=== PATIENT | female | born 1955 | race Caucasian/White ===

== ENCOUNTER 2025-02-06 12:05 | Emergency (ER) | payer OTHER, SELFPAY ==
[2025-02-06] VITALS (7 sets, daily range): BP systolic 101–138; BP diastolic 62–88; BMI 18.9
[2025-02-06 12:42] LABS: Hematocrit 39.8 % (37.0-47.0); Hemoglobin 13.5 g/dL (12.0-16.0); Mean Corp Hgb Conc. 33.9 g/dL (33.0-37.0); Mean Corpuscular Volume 89.8 fL (81.0-99.0); Nucleated Red Blood Cells % 0 %; Platelet Count 339 10^3/uL (130-400); Red Cell Dist. Width 12.0 % (11.5-14.5)
[2025-02-06 13:12] LABS: ALT (SGPT) 15 U/L (0-35); AST (SGOT) 18 U/L (14-36); Albumin 4.1 g/dl (3.5-5.0); Alkaline Phosphatase 85 U/L (38-126); Blood Urea Nitrogen 13 mg/dl (7-17); Calcium 9.4 mg/dl (8.4-10.2); Carbon Dioxide 27 mmol/L (22-30); Chloride 106 mmol/L (98-107); Estimated Creatinine Clearance 63 ml/min; Glucose 111 mg/dl (70-99); Potassium 3.5 mmol/L (3.5-5.1); Sodium 139 mmol/L (135-145); Total Protein 6.8 g/dl (6.3-8.2); eGFR > 60.00
--- NOTE | 2025-02-06 14:12 | ED.GENMED ---
History of Present Illness
<Sheri Archibald SALES REPRESENTATIVE [employer] - Last Filed: 02/07/25 08:20>
General
Chief Complaint: Abdominal Symptoms
Source: patient
Exam Limitations: none
Time Seen by Provider: 02/06/25 12:16
Nursing documentation reviewed up to this point in time: agreed with
History of Present Illness
History of Present Illness:
69-year-old female with a history of chronic obstructive pulmonary disease (COPD), hypothyroidism, who presents with abdominal pain and diarrhea that began on 4 days ago. The patient reports frequent episodes of diarrhea but denies fever or chills.
She mentions noticing blood during some episodes of diarrhea, mainly with wiping, which she attributes to hemorrhoids. The abdominal pain is mainly on the 'right side,' with no mention of chest pain or respiratory difficulties beyond COPD. No
recent travel or contact with sick individuals. She has been compliant with taking levothyroxine and uses inhalers for COPD. Denies f/c. Denies recent antibiotic use. Denies UTI symptoms.
Past History
<Sheri Archibald, SALES REPRESENTATIVE [employer] - Last Filed: 02/07/25 08:20>
Past History
ED Past Medical History: COPD and Hypothyroidism
ED Past Surgical History: Gynecological and Tonsilectomy
Social History
Tobacco: Smoker
Alcohol: None
Personal: Single
Living: with family (lives with daughter)
Employment: Retired
Review of Systems
<Sheri Archibald, SALES REPRESENTATIVE [employer] - Last Filed: 02/07/25 08:20>
Review of Systems
Allergies reviewed?: Yes
All Other Systems: ROS reviewed and negative except as documented in HPI and ROS
Constitutional: Denies fever or chills
Respiratory: Denies trouble breathing
Cardiac: Denies chest pain
ABD/GI: Reports abdominal pain and diarrhea (with blood at times with wiping); Denies nausea, vomiting or anorexia
: Reports no symptoms
Skin: Reports no symptoms
Neurological: Reports no symptoms
Phy Exam
<Sheri Archibald, SALES REPRESENTATIVE [employer] - Last Filed: 02/07/25 08:20>
Physical Exam
Physical Exam:
GENERAL: No acute distress. A&Ox3.
CONSTITUTIONAL: Afebrile.
EYES: clear, conjunctivae normal
ENMT: moist mucus membranes
RESPIRATORY: Regular respirations, nonlabored, lungs clear.
CARDIOVASCULAR: Regular rate and rhythm, no murmurs, no rubs.
GI: Soft, generally tender to palpation, nondistended, normal BS
MUSCULOSKELETAL: Moves with ease. Well perfused. No edema
SKIN: Warm, dry, pink
PSYCH: Normal mood and affect. Well kept, interactive and appropriate
NEUROLOGIC: Awake, alert and oriented. No focal neurological deficits
Course
<Sheri Archibald, SALES REPRESENTATIVE [employer] - Last Filed: 02/07/25 08:20>
Orders/Labs/Results
Orders:
Orders
02/06/25 12:33
Complete Blood Count/With Diff Urgent
Comprehensive Metabolic Panel Urgent
STOOL [C difficile Antigen & Toxins] Urgent
[facility] Source: Feces/Stool
Specimen Description:
Date Specimen was Collected: 02/06/25
Time Specimen was Collected: 12:31
Stool Culture Urgent
[facility] Source: Feces/Stool
Specimen Description:
Date Specimen was Collected: 02/06/25
Time Specimen was Collected: 12:31
02/06/25 14:11
CT Abd/pel W Iv And Oral Contr Urgent
Comment:
Reason For Exam: abdominal pain, diarrhea, intermittent blood
Iohexol [Omnipaque] See Protocol PO NOW STA
02/06/25 17:45
Amoxicillin 875 mg/Clav 125 mg [Augmentin 875 mg/125 mg] 1 tablet PO NOW STA
Abnormal Lab Results
02/06/25
12:33
Absolute Monos (auto) 0.7 H 10^3/uL
(0.1-0.6)
Monocytes % 10.3 H %
(1.7-9.3)
Creatinine 0.5 L mg/dL
(0.6-1.0)
Glucose 111 H mg/dl
(70-99)
02/06/25 12:33
02/06/25 12:33
Vital Signs
Initial and Last Documented VS:
Initial Vital Signs
Temp Pulse Resp BP Pulse Ox
97.9 F 84 16 134/68 99
02/06/25 12:06 02/06/25 12:06 02/06/25 12:06 02/06/25 12:06 02/06/25 12:06
Last Documented Vital Signs
Temp Pulse Resp BP Pulse Ox
97.9 F 84 16 129/62 94
02/06/25 12:06 02/06/25 12:06 02/06/25 12:06 02/06/25 17:17 02/06/25 17:45
<Meggan Giles NP - Last Filed: 02/06/25 17:52>
Orders/Labs/Results
Orders:
Orders
02/06/25 12:33
Complete Blood Count/With Diff Urgent
Comprehensive Metabolic Panel Urgent
STOOL [C difficile Antigen & Toxins] Urgent
[facility] Source: Feces/Stool
Specimen Description:
Date Specimen was Collected: 02/06/25
Time Specimen was Collected: 12:31
Stool Culture Urgent
[facility] Source: Feces/Stool
Specimen Description:
Date Specimen was Collected: 02/06/25
Time Specimen was Collected: 12:31
02/06/25 14:11
CT Abd/pel W Iv And Oral Contr Urgent
Comment:
Reason For Exam: abdominal pain, diarrhea, intermittent blood
Iohexol [Omnipaque] See Protocol PO NOW STA
02/06/25 17:45
Amoxicillin 875 mg/Clav 125 mg [Augmentin 875 mg/125 mg] 1 tablet PO NOW STA
Abnormal Lab Results
02/06/25
12:33
Absolute Monos (auto) 0.7 H 10^3/uL
(0.1-0.6)
Monocytes % 10.3 H %
(1.7-9.3)
Creatinine 0.5 L mg/dL
(0.6-1.0)
Glucose 111 H mg/dl
(70-99)
02/06/25 12:33
02/06/25 12:33
Vital Signs
Initial and Last Documented VS:
Initial Vital Signs
Temp Pulse Resp BP Pulse Ox
97.9 F 84 16 134/68 99
02/06/25 12:06 02/06/25 12:06 02/06/25 12:06 02/06/25 12:06 02/06/25 12:06
Last Documented Vital Signs
Temp Pulse Resp BP Pulse Ox
97.9 F 84 16 129/62 94
02/06/25 12:06 02/06/25 12:06 02/06/25 12:06 02/06/25 17:17 02/06/25 17:45
<Sheri Archibald, SALES REPRESENTATIVE [employer] - Last Filed: 02/07/25 08:20>
MDM/Problems Addressed
Differential Diagnosis Includes:
Diverticulitis, colitis, hemorrhoids, infectious diarrhea
MDM/Problems Addressed:
69-year-old female with a history of chronic obstructive pulmonary disease (COPD), hypothyroidism, who presents with abdominal pain and diarrhea that began on 4 days ago. The patient reports frequent episodes of diarrhea but denies fever or chills.
She mentions noticing blood during some episodes of diarrhea, mainly with wiping, which she attributes to hemorrhoids. The abdominal pain is mainly on the 'right side,' with no mention of chest pain or respiratory difficulties beyond COPD. No
recent travel or contact with sick individuals. She has been compliant with taking levothyroxine and uses inhalers for COPD. Denies f/c. Denies recent antibiotic use. Denies UTI symptoms.
Afebrile, NAD
CBC, CMP normal (no sign of infection, dehydration with normal liver and kidney functions).
C diff neg
3:45 p.m.
Pt prepping for CT scan. Case discussed with Meggan Tsai NP who will assume care from this point
<Sheri Archibald NP - Last Filed: 02/07/25 08:20>
*Pulse Oximetry
SaO2: 96
Oxygen Mode of Delivery: Room air
<Meggan Giles NP - Last Filed: 02/06/25 17:52>
*Pulse Oximetry
Patient hypoxic: no
*Critical Care Note
Total Time (30-74mins, 75-104mins- exclusive of procedures): Not Applicable
<Meggan Giles NP - Last Filed: 02/06/25 17:52>
Update Note
Update Note:
CT report reviewed;' findings suspicious for acute sigmoid diverticulitis, no perforation or abscess. There was also mild wall thickening throughout the descending colon which raises the possibility of superimposed nonspecific colitis.' Discussed
CT findings with patient. Will start Augmentin in the ED. She will be discharged home on clear liquids, to advance as tolerated. She was given instructions on signs and symptoms to return to the emergency department and she is agreeable to this
plan. Given also the number for GI follow-up.
ED Attending Note
<Sheri Archibald NP - Last Filed: 02/07/25 08:20>
-
Portions of this chart may have been created with voice recognition software.� Occasional wrong word or��sound alike� substitutions may have occurred due to the inherent limitations of voice recognition software.
Discharge Plan
Departure
Patient Disposition: Home (Routine Discharge)
Date of Disposition: 02/06/25
Time of Disposition: 17:46
Patient with high blood pressure during this ER visit?: No
Condition: Good
Covid-19: Not Applicable
Discharge Problem:
Diverticulitis
Instructions: Clear Liquid Diet, Diverticulitis (DC)
Prescriptions:
New
amoxicillin-pot clavulanate 875-125 mg tablet
1 tab PO BID Qty: 20 0RF
No Action
amoxicillin-pot clavulanate 875-125 mg tablet
1 tab PO BID Qty: 20 0RF
Referrals:
Tanya Byrnes MD [Active, Gastroenterology] - Next open appointment
Glenn Alfonso DO [Family Provider, Family Practice] - Follow up in 2-3 days
Activity Restrictions/Additional Instructions:
Return to the emergency department immediately for any changes in/worsening of your symptoms.
Interventions
Interventions:
*Risk Screen - Suicide Last Done: 02/06/25 12:06
*General Assessment Last Done: 02/06/25 12:35
*Neglect/Abuse Screening Last Done: 02/06/25 12:06
*ED- Fall Risk Assessment Last Done: 02/06/25 12:35
*ED COVID-19 Vaccine History Last Done: 02/06/25 12:35
*ED Influenza Vaccine History Last Done: 02/06/25 12:35
*Nursing Disposition Last Done: 02/06/25 18:05
MW-Xhyrnl-Bnmfimatzz Assessment Last Done: 02/06/25 12:36
Discharge Date and Time
Discharge Date/Time: 02/06/25 18:05
Print Language: LAO
[2025-02-06] MEDS: OMNIPAQUE 50 ML PO (14:14)
[2025-02-06] MEDS: AUGMENTIN 875 MG/125 MG 1 TABLET PO (17:50)
== END 2025-02-06 18:05 | disposition home or self-care (01) ==
LOC: EMR 12:05
PROVIDERS: Registered Nurse; EMERGENCY PHYSICIAN Emergency Medicine; FAMILY PHYSICIAN Family Medicine
DX: K57.32 Diverticulitis of large intestine without perforation or abscess without bleeding (principal); J44.9 Chronic obstructive pulmonary disease, unspecified; E03.9 Hypothyroidism, unspecified; F17.200 Nicotine dependence, unspecified, uncomplicated
CPT/HCPCS: 99284; 74177; 80053; 85025; 87045; 87046; 87077; 87324; 87427; 87449; Q9967